=== PATIENT | male | born 1965 | race Hispanic/Latino ===

== ENCOUNTER 2017-01-22 10:45 | Emergency (ER) | payer SELFPAY ==
[2017-01-22 10:53] VITALS: BMI 26.2
[2017-01-22 11:44] VITALS: BP 145/90; PULSE 76; RESP 18; TEMP 98.1
--- NOTE | 2017-01-22 11:46 | ED PDOC ---
HPI: General Adult History Per: Patient History/Exam Limitations: no limitations Onset/Duration Of Symptoms: Days Have you had recent travel within the past 21 days to any of the following countries: [place], [place], [place] or [place]?: No Current Symptoms Are (Timing): Still Present Severity: Moderate Location: whole body <Bud Jara - Last Filed: 01/22/17 12:14> <Tavon Méndez - Last Filed: 01/22/17 12:31> Time Seen by Provider: 01/22/17 11:04 Chief Complaint (Nursing): Abnormal Skin Integrity Additional Complaint(s): CC: rash HPI: 51 y/o man w/ pmh HIV (unknown CD4 count), HTN, and DM2 presents to the ED with rash. The patient reports general body rash for over 2 weeks that started in his abdomen. The rash then spread everywhere to head, UE, back, LE, groin, and anus. The patient reports the rash is very itchy and dry, scratching has resulted in superficial bleed. The patient reports that he has not followed up with his PMD for his HIV nor has he taken HAART medications in over 1 year. The patient reports that he continues to be sexually active with inconsistent condom use, partner is also HIV positive. Patient reports subjective fever and mild dysuria but denies nausea, vomiting, diarrhea, headaches, chest pain, SOB, and abdominal pain. The patient reports allergy to advil which results in rash but patient denies taking advil in a long time. ROS: 12 points assessed and negative unless otherwise reported in HPI allergies: ibuprofen (rash) PMH: HIV, HTN, DM2 meds: takes brother's HTN and DM2 meds, no HAART in over 1 year PMD: Dr. Petty (no follow up in over 1 year) PSH: none SOC: sexually active, inconsistent condom use, partner also has HIV, denies smoking, alcohol, and drugs (Bud Jara) Supervising Attending Note <Bud Jara - Last Filed: 01/22/17 12:14> - Supervising Attending Note The Documented history was done by the: Physician Vascular Surgery Physician The documented physical exam was done by the: Physician Vascular Surgery Physician The documented procedures were done by the: Physician Vascular Surgery Physician - Attestation: I have personally seen and examined this patient.: Yes I have fully participated in the care of the patient.: Yes I have reviewed all pertinent clinical information, including history, physical exam and plan: Yes <Tavon Méndez - Last Filed: 01/22/17 12:31> - Notes: Notes:: Rash Itchy Noncompliant with hiv meds (Tavon Méndez) Past Medical History Reviewed: Historical Data, Nursing Documentation, Vital Signs - Medical History PMH: HIV, HTN, Hypercholesterolemia - Family History Family History: States: Unknown Family Hx <Bud Jara - Last Filed: 01/22/17 12:14> <Tavon Méndez - Last Filed: 01/22/17 12:31> Vital Signs: Last Vital Signs Temp 98.1 F 01/22/17 11:44 Pulse 76 01/22/17 11:44 Resp 18 01/22/17 11:44 BP 145/90 01/22/17 11:44 Pulse Ox 99 01/22/17 12:14 - Home Medications Home Medications: Ambulatory Orders Medication Instructions Recorded Amlodipine Besylate/Benazepril 5 - 20 mg PO DAILY 09/17/14 [Amlodipine Besylate and Benazepril HCl 10 mg] GlipiZIDE [Glucotrol] 10 mg PO DAILY 09/17/14 Oxycodone HCl/Acetaminophen 1 tab PO Q6H PRN #15 tab 09/17/14 [Percocet 325 mg-5 mg] Pioglitazone [Actos] 30 mg PO DAILY 09/17/14 Sitagliptin Phosphate [Januvia] 100 mg PO DAILY 09/17/14 Sulfamethoxazole 800 mg PO DAILY 09/17/14 Cetirizine HCl [Zyrtec] 10 mg PO DAILY #10 capsule 01/22/17 DiphenhydrAMINE [Benadryl] 25 mg PO Q6 PRN #20 cap 01/22/17 Famotidine [Pepcid] 20 mg PO DAILY #10 tab 01/22/17 - Allergies Allergies/Adverse Reactions: Allergies Allergy/AdvReac Type Severity Reaction Status Date / Time ibuprofen Allergy RASH Verified 01/22/17 11:08 Review of Systems ROS Statement: Except As Marked, All Systems Reviewed And Found Negative Constitutional: Positive for: Fever. Negative for: Sweats, Weakness, Weight loss ENT: Negative for: Mouth Pain, Throat Pain, Throat Swelling Cardiovascular: Negative for: Chest Pain, Palpitations, Edema, Light Headedness Respiratory: Negative for: Cough, Shortness of Breath, SOB with Exertion, Pleuritic Pain, Wheezing Gastrointestinal: Negative for: Nausea, Vomiting, Abdominal Pain, Diarrhea Genitourinary Male: Positive for: Dysuria Skin: Positive for: Rash Neurological: Negative for: Weakness, Numbness, Confusion, Headache, Dizziness <Bud Jara - Last Filed: 01/22/17 12:14> Physical Exam - Reviewed Nursing Documentation Reviewed: Yes Vital Signs Reviewed: Yes - Physical Exam Appears: Positive for: No Acute Distress Head Exam: Positive for: ATRAUMATIC, NORMOCEPHALIC Skin: Positive for: Rash ENT: Positive for: Normal ENT Inspection, Other (no thrush present) Neck: Positive for: Normal, Painless ROM, Supple Cardiovascular/Chest: Positive for: Regular Rate, Rhythm, Chest Non Tender. Negative for: Bradycardia, Tachycardia Respiratory: Positive for: Normal Breath Sounds. Negative for: Decreased Breath Sounds, Accessory Muscle Use, Crackles, Rales, Rhonchi, Wheezing, Respiratory Distress Pulses-Carotid (L): 2+ Pulses-Carotid (R): 2+ Pulses-Dorsalis Pedis (L): 2+ Pulses-Dorsalis Pedis (R): 2+ Pulses-Post. Tibialis (L): 2+ Pulses-Post. Tibialis (R): 2+ Pulses-Radial (L): 2+ Pulses-Radial (R): 2+ Gastrointestinal/Abdominal: Positive for: Normal Exam, Bowel Sounds, Soft. Negative for: Tenderness Male Genital Exam: Positive for: other (extensive rash in pelvic region). Negative for: bleeding, scrotum tenderness (R), scrotum tenderness (L), testicular tenderness (R), testicular tenderness (L), urethral discharge Neurologic/Psych: Positive for: Alert, Oriented <Bud Jara - Last Filed: 01/22/17 12:14> - Physical Exam Skin: Positive for: Rash (multiple spots of erythema, blanching that are dome- shaped, itchy nodules: on arms, legs, pelvic, groin.; no dc, no induration, nontender.) Cardiovascular/Chest: Positive for: Regular Rate, Rhythm Neurologic/Psych: Positive for: Alert, Oriented <Tavon Médnez - Last Filed: 01/22/17 12:31> - ECG O2 Sat by Pulse Oximetry: 99 <Bud Jara - Last Filed: 01/22/17 12:14> <Tavon Méndez - Last Filed: 01/22/17 12:31> - Progress ED Course And Treament: 1229: Noncompliant hiv pt. Likely prurigo related from not taking hiv meds. AAOx3. Pain free. Tolerated po. FU with pcp. (Tavon Méndez) Medical Decision Making <Bud Jara - Last Filed: 01/22/17 12:14> <Tavon Méndez - Last Filed: 01/22/17 12:31> Medical Decision Makin51 y/o man w/ pmh HIV (unknown CD4 count), HTN, and DM2 presents to the ED with rash. Most likely prurigo. cased discussed w/ Dr. Petty, recommends no corticosteroids at this time due to unknown CD4 count status, just antihistamines RPR: follow up w/ PMD CD4 count: follow up w/ PMD HIV viral load: follow up w/ PMD Benadryl 25 mg PO Dispo: DC home, given scripts for benadryl, zyrtec, and pepcid (Bud Jara) Disposition - Patient ED Disposition Is Patient to be Admitted: No Discussed With DrJeremias: Tavon Méndez Counseled Patient/Family Regarding: Studies Performed, Diagnosis, Need For Followup, Rx Given - Disposition Disposition: Routine/Home Disposition Time: 12:14 - POA Present On Arrival: None <Bud Jara - Last Filed: 01/22/17 12:14> <Tavon Méndez - Last Filed: 01/22/17 12:31> - Clinical Impression Clinical Impression: Prurigo - Disposition Referrals: Bud Petty MD [Staff Provider] - 01/23/17 Condition: STABLE Additional Instructions: Take medications as prescribed. Follow up with PMD in 2-3 days to discuss labs drawn. Prescriptions: Cetirizine HCl [Zyrtec] 10 mg PO DAILY #10 capsule DiphenhydrAMINE [Benadryl] 25 mg PO Q6 PRN #20 cap PRN Reason: Itching / Pruritus Famotidine [Pepcid] 20 mg PO DAILY #10 tab Instructions: Acute Rash (DC), Acute Rash (GEN), Dermatitis (ED) Forms: [facility] ([place])
[2017-01-22 11:47] VITALS: O2SAT 99
== END 2017-01-22 13:31 | disposition home or self-care (01) ==
LOC: H.ER 10:45
DX: L28.2 Other prurigo (principal); B20 Human immunodeficiency virus [HIV] disease; I10 Essential (primary) hypertension; E11.9 Type 2 diabetes mellitus without complications